=== PATIENT | female | born 1985 | race Caucasian/White ===

== ENCOUNTER 2018-12-18 09:00 | Outpatient (CLI) | payer BC | END 2018-12-18 09:01 | disposition home or self-care (01) | LOC: CTENTCT 09:00 | PROVIDERS: ATTEND Otolaryngology Plastic Surgery within the Head & Neck | DX: J01.81 Other acute recurrent sinusitis (principal) | CPT/HCPCS: 70486 ==

== ENCOUNTER 2019-01-14 06:42 | Day surgery (SDC) | payer BC ==
[2019-01-13 15:09] VITALS: BMI 19.8
[2019-01-14] MEDS ORDERED: Oxymetazoline HCl 0.05% ( 15 ML ) ONE (07:56)
[2019-01-14] MEDS ORDERED: Midazolam HCl 2 mg/2 ml Vial ONE ×2 (08:16→08:20)
[2019-01-14] MEDS ORDERED: Lidocaine 1% w/Epinephrine 1:100K 20 ML VIAL ONE (08:50)
[2019-01-14] MEDS ORDERED: Fentanyl 100 MCG/2 ML VIAL ONE ×2 (08:56→10:23)
[2019-01-14] MEDS ORDERED: HYDROcodone/Acetaminophen 5/325 mg Tablet ONE (11:43)
--- NOTE | 2019-01-15 09:30 | OP ---
DATE OF PROCEDURE: 01/14/2019 PREOPERATIVE DIAGNOSES: 1. Chronic rhinosinusitis. 2. Bilateral inferior turbinate hypertrophy. 3. Nasal obstruction. POSTOPERATIVE DIAGNOSES: 1. Chronic rhinosinusitis. 2. Bilateral inferior turbinate hypertrophy. 3. Nasal obstruction. PROCEDURES PERFORMED: 1. Bilateral endoscopic sinus surgery, total ethmoidectomies. 2. Bilateral endoscopic sinus surgery, maxillary antrostomies. 3. Bilateral endoscopic sinus surgery, frontal sinusotomies. 4. Bilateral inferior turbinate submucosal resection. ESTIMATED BLOOD LOSS: 20 mL. COMPLICATIONS: None. ANESTHESIA: GETA. DESCRIPTION OF PROCEDURE: Patient was taken to the operating room and placed supine on the table. General endotracheal anesthesia was obtained by the anesthesia staff. Tube was secured in the left lower lip. Patient was then placed in the beach chair position, and Afrin pledgets were placed in the nasal cavity. Injections of 1% lidocaine with 1:100,000 epinephrine were made into the nasal septum as well as the inferior turbinates. Patient was then prepped and draped in standard surgical fashion for nasal surgery. Following this, the Afrin pledgets were removed. A Rodey incision was made on the left nasal septum. Submucoperichondrial dissection was performed. The deviated portions of the septum included portions of the cartilage and the bony septum. These isolated areas were removed using 3 cutting rongeurs. There was noted to be a large dorsal and caudal strut, left intact for support of the nose. The mucoperichondrial flaps were then reapproximated using a 4-0 gut stitch. Any straight pieces of cartilage were crushed prior to this and placed between the mucoperichondrial flaps. Following this, the inferior turbinates were then punctured with a submucosal coblation wand, and submucosal coblations were performed of multiple areas of the inferior portion of the anterior inferior turbinate. Following this, the 0-degree endoscope was advanced in the nasal cavity. 1% lidocaine with 1:100,000 epinephrine was injected into the inferior turbinates, middle turbinates, and lateral nasal wall bilaterally. Following this, the middle turbinates were gently medialized using a [place] elevator and the uncinate process was identified and was anteriorly fractured using a ball-ended probe. Following this, the uncinate process was removed using the 0-degree microdebrider and the upbiting Blakesley forceps bilaterally. Following this, the maxillary sinus ostia was identified using the ball-ended probe and was then gently widened using the 40-degree microdebrider and the straight Blakesley forceps bilaterally. Following this, the ethmoidal bulla was identified and was punctured on its medial and inferior aspect with the microdebrider. Following this, ethmoidal bulla was removed using the microdebrider and the upbiting Blakesley forceps. Following this, the grand lamella was identified bilaterally and was punctured with the 0-degree microdebrider into the posterior ethmoidal cells. Following this, working from posterior to anterior, the ethmoidal cells were opened in a mucosal sparing technique using the 40-degree microdebrider and the 0-degree microdebrider and the upbiting Blakesley forceps. Thick areas of purulence were noted within the posterior ethmoidal cells bilaterally. Following this, the 45-degree endoscope and the 40-degree microdebrider was used to further open the frontal recess area and identify and widen the frontal sinus ostia bilaterally. Following this, the inferior turbinates were punctured on the anterior and inferior aspect using submucosal microdebrider and submucosal resection was performed of the anterior and inferior portions of the inferior turbinates bilaterally. Following this, the nasal cavity was irrigated. Mirapex was placed. The patient tolerated the procedure well. Job ID: [id number]
== END 2019-01-14 12:30 | disposition home or self-care (01) ==
LOC: SDC 06:42
PROVIDERS: ATTEND Otolaryngology Plastic Surgery within the Head & Neck
PROC: 099R8ZZ Drainage of Left Maxillary Sinus, Via Natural or Artificial Opening Endoscopic (ICD-10-PCS; principal; 2019-01-14)
PROC: 099Q8ZZ Drainage of Right Maxillary Sinus, Via Natural or Artificial Opening Endoscopic (ICD-10-PCS; principal; 2019-01-14)
PROC: 09TU8ZZ Resection of Right Ethmoid Sinus, Via Natural or Artificial Opening Endoscopic (ICD-10-PCS; principal; 2019-01-14)
PROC: 099T8ZZ Drainage of Left Frontal Sinus, Via Natural or Artificial Opening Endoscopic (ICD-10-PCS; principal; 2019-01-14)
PROC: 09TL0ZZ Resection of Nasal Turbinate, Open Approach (ICD-10-PCS; principal; 2019-01-14)
PROC: 09TV8ZZ Resection of Left Ethmoid Sinus, Via Natural or Artificial Opening Endoscopic (ICD-10-PCS; principal; 2019-01-14)
PROC: 099S8ZZ Drainage of Right Frontal Sinus, Via Natural or Artificial Opening Endoscopic (ICD-10-PCS; principal; 2019-01-14)
DX: J32.9 Chronic sinusitis, unspecified (principal); J34.3 Hypertrophy of nasal turbinates; J34.89 Other specified disorders of nose and nasal sinuses; E78.00 Pure hypercholesterolemia, unspecified; K21.9 Gastro-esophageal reflux disease without esophagitis; F41.9 Anxiety disorder, unspecified; J30.9 Allergic rhinitis, unspecified; Z79.51 Long term (current) use of inhaled steroids; Z79.899 Other long term (current) drug therapy; Z91.040 Latex allergy status
CPT/HCPCS: 36415; 85014; J0131; J2001; J2250; J3010

== ENCOUNTER 2021-05-23 13:49 | Outpatient (CLI) | payer BC | END 2021-05-23 13:50 | disposition home or self-care (01) | LOC: BICMRI 13:49 | PROVIDERS: ATTEND Family Medicine | DX: R51.9 Headache, unspecified (principal) | CPT/HCPCS: 70551 ==

== ENCOUNTER 2023-08-01 16:10 | Outpatient (CLI) | payer BC | END 2023-08-01 16:11 | disposition home or self-care (01) | LOC: BICRAD 16:10 | PROVIDERS: ATTEND Nurse Practitioner Family | DX: R05.8 Other specified cough (principal) | CPT/HCPCS: 71046 ==